=== PATIENT | female | born 1945 | race Two or more races ===

== ENCOUNTER 2024-04-11 18:58 | Emergency (ER) | payer OTHER, MEDICAID ==
[~2024-04-11] VITALS: Ht 170.2 cm; Wt 100.0 kg
[2024-04-11 19:17] VITALS: BP 163/111
[2024-04-11 19:40] VITALS: PULSE 69; RESP 18; O2SAT 95
[2024-04-11] MEDS: LIDOCAINE 1% HCL (LOCAL ANESTH.) INJ 20ML MDV ONE (19:43)
[2024-04-11] MEDS: TETANUS-DIPTH-ACEL PERTUSSIS 0.5ML SYR Tdap IM ONE (21:24)
--- NOTE | 2024-04-11 21:30 | ED.PDOC ---
Chief Complaint: Head Injury Time Seen by MD: 19:14 Reviewed Notes: Nurses Notes, Medications, Allergies Allergies: Coded Allergies: NO KNOWN ALLERGIES (Unverified , 04/11/24) Information Source: Patient Mode of Arrival: EMS Complexity: Intermediate Laceration Length (cm): 2 Past Medical History PAST MEDICAL HISTORY: Denies Surgical History: Denies all surgeries MONITOR AND STORAGE BIN TENDER History: No Pertinent MONITOR AND STORAGE BIN TENDER History Family History Family History: Reviewed,noncontributory to illness Social History Smoker: Non-Smoker Alcohol: Denies ETOH Use Drugs: Denies Drug Use Constitutional: denies: chills, diaphoresis, fatigue, fever, malaise, sweats, weakness, others EENTM: denies: blurred vision, double vision, ear bleeding, ear discharge, ear drainage, ear pain, ear ringing, eye pain, eye redness, hearing loss, mouth pain, mouth swelling, nasal discharge, nose bleeding, nose congestion, nose pain, photophobia, tearing, throat pain, throat swelling, voice changes, others Respiratory: denies: cough, hemoptysis, orthopnea, SOB at rest, shortness of breath, SOB with excertion, stridor, wheezing, others Cardiovascular: denies: chest pain, dizzy spells, diaphoresis, Dyspnea on exertion, edema, irregular heart beat, left arm pain, lightheadedness, palpitations, PND, syncope, others Gastrointestinal: denies: abdomen distended, abdominal pain, blood streaked bowels, constipated, diarrhea, dysphagia, difficulty swallowing, hematemesis, melena, nausea, poor appetite, poor fluid intake, rectal bleeding, rectal pain, vomiting, others Genitourinary: denies: abnormal vagina bleeding, burning, dyspareunia, dysuria, flank pain, frequency, hematuria, incontinence, pain, , vagina discharge, urgency, others Neurological: denies: dizziness, fainting, headache, left sided numbness, left sided weakness, numbness, paresthesia, pre-existing deficit, right sided numbness, right sided weakness, seizure, speech problems, tingling, tremors, weakness, others Musculoskeletal: denies: back pain, gout, joint pain, joint swelling, muscle pain, muscle stiffness, neck pain, others Integumetry: reports: laceration (1 in above right eye); denies: bruises, change in color, change in hair/nails, dryness, lesions, lumps, rash, wounds, others Hematologic/Lymphatic: denies: anemia, blood clots, easy bleeding, easy bruising, swollen glands, others Endocrine: denies: excessive hunger, excessive sweating, excessive thirst, excessive urination, flushing, intolerance to cold, intolerance to heat, unexplained weight gain, unexplained weight loss, others Psychiatric: denies: anxiety, bipolar disorder, depression, hopeless, panic disorder, schizophrenia, sleepless, suicidal, others Physical Exam General Appearance: No Apparent Distress, Normal HEENT: Normal ENT Inspection, Pharynx Normal, TMs Normal Neck: Full Range of Motion, Non-Tender, Normal, Normal Inspection Respiratory: Chest Non-Tender, Lungs Clear, No Accessory Muscle Use, No Respiratory Distress, Normal Breath Sounds Cardiovascular: No Edema, No JVD, No Murmur, No Gallop, Normal Peripheral Pulses, Regular Rate/Rhythm Breast Exam: Deferred Gastrointestinal: No Organomegaly, Non Tender, No Pulsatile Mass, Normal Bowel Sounds, Soft Genitalia: Deferred Pelvic: Deferred Rectal: Deferred Extremities: Normal capillary refill, Normal inspection, Normal range of motion , Non-tender, No pedal edema Musculoskeletal : Apperance: Normal Neurologic: Alert, 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 Was a procedure done?: Yes Sedation Sedation?: No Informed consent obtained: Yes Laceration Repair : Location Above right eyebrow Length 2 cm Anesthetic: Lidocaine, Without epi Laceration Repair Prep: Saline Laceration Repair Wound Comple: epidermis/dermis repair Laceration Repair: Number of sutures (5), Layers Closed, Simple (With absorbable sutures) Informed consent obtained: Yes Risks, benefits, and alternati: Yes Notes Patient tolerated procedure well with minimal blood loss. Differential diagnosis Generic Laceration: Hematoma, Abrasion/Contusion X-Ray, Labs, Meds, VS Vital Signs Date Time Temp Pulse Resp B/P (MAP) Pulse Ox O2 Delivery O2 Flow Rate FiO2 04/11/24 19:40 69 18 95 Room Air 04/11/24 19:17 98.0 89 19 163/111 (128) 98 X-Ray, Labs, Meds, VS Comment See procedure note wound closed with good approximation bleeding stopped. Absorbable sutures no need for removal patient was advised. Advised to follow up with PCP in 2-3 days as necessary. Return to the ER for uncontrolled bleeding signs and symptoms of infection. Patient indicated understanding. Time of 1ST Reevaluation: 21:25 Reevaluation 1ST: Improved Patient Education/Counseling: Diagnosis, Treatment, Prognosis, Need For Follow Up Family Education/Counseling: Diagnosis, Treatment, Prognosis, Need For Follow Up Departure 1 Departure Time of Disposition: 21:25 Impression: Primary Impression: Laceration of forehead without complication Qualified Codes: S01.81XA - Laceration without foreign body of other part of head, initial encounter Disposition: HOME / SELF CARE / HOMELESS Condition: Stable Discharged With: Other (Son) Critical Care Note Critical Care Time?: No Stability Stability form required: BHUPINDER Guan Apr 11, 2024 21:30
== END 2024-04-11 21:47 | disposition home or self-care (01) ==
LOC: EDBD 18:58 → ER 18:58
DX: S01.81XA Laceration without foreign body of other part of head, initial encounter (principal); X58.XXXA Exposure to other specified factors, initial encounter; Y93.89 Activity, other specified; Y92.89 Other specified places as the place of occurrence of the external cause; Y99.8 Other external cause status
CPT/HCPCS: 12011; 90471; 90715; 99283; J2003

== ENCOUNTER 2024-06-05 10:43 | Inpatient (IN) | payer OTHER, MEDICAID ==
[~2024-06-05] VITALS: Ht 172.7 cm; Wt 97.0 kg
[2024-06-05] MEDS: ASPirin 325 MG TAB PO ONE (11:15)
--- NOTE | 2024-06-05 11:32 | ECG ---
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
[2024-06-05 11:47] LABS: Basophils # (auto) 0 10 ^3/uL (0-0.2); Basophils % (auto) 0.5 % (0.0-2.0); Eosinophils # (auto) 0.1 10 ^3/uL (0-0.8); Eosinophils % (auto) 0.9 % (0.0-7.0); Hematocrit 36.2 % (36.0-46.0); Hemoglobin 11.9 g/dL (12.2-16.2); Lymphocytes # (auto) 1.1 10 ^3/uL (0.4-5.4); Lymphocytes % (auto) 18.4 % (10.0-50.0); Mean Corpuscular Hemoglobin 31.8 pg (28.0-32.0); Mean Corpuscular Volume 96.5 fL (80.0-100.0); Monocytes # (auto) 0.3 10 ^3/uL (0-1.3); Monocytes % (auto) 5.7 % (0.0-12.0); Neutrophils # (auto) 4.3 10 ^3/uL (1.6-8.6); Neutrophils % (auto) 74.5 % (37.0-80.0); Nucleated Red Blood Cells % 0.1 %; Platelet Count (auto) 196 10^3/uL (140-450); Red Blood Cells 3.75 10^6/uL (4.0-5.20); Red Cell Distribution Width 16.8 % (11.8-14.3); White Blood Cell 5.8 10^3/uL (4.4-10.8)
--- NOTE | 2024-06-05 11:53 | DVH ---
CHEST RADIOGRAPH Indication: cp Technique: Single frontal view of the chest was obtained COMPARISON: None FINDINGS: Lines and Tubes: None Lungs: Clear Pleura: No effusion. No pneumothorax. Cardiomediastinal contours: Moderate ectasia of the ascending aorta. Mild prominence of the central p ulmonary arteries. Bones: Unremarkable IMPRESSION: 1. Pulmonary infiltrates. Borderline cardiomegaly.
--- NOTE | 2024-06-05 11:56 | ED.PDOC ---
HPI Comments 79 y.o female with PMHx of CHF, CVA and seizures, presents to the ED for a chief complaint of chest pain x 3 months. Patient reports pain presented once a month, described as a pressure but states today it felt tight and presented before 0800 at rest associated with bilateral arm tingling sensation. Patient initially went to urgent care for levetiracetam medication refill, expressed her chest discomfort then and was sent to the ED for further evaluation. Patient does report recent diagnose of bladder infection. Patient denies any SOB, nausea, vomiting, diarrhea, fever, chills. She denies any substance, alcohol or tobacco use. Chief Complaint: Dizziness Time Seen by MD: 10:56 Reviewed Notes: Nurses Notes, Medications, Allergies Allergies: Coded Allergies: NO KNOWN ALLERGIES (Unverified , 04/11/24) Information Source: Patient Mode of Arrival: Ambulatory Severity: Moderate Timing: Months (3) Duration: Since onset Location: Substernal Radiation: Arm (R), Arm (L) Quality: Tightness Onset: At Rest Cardiac Risk Factors: Other PE Risk Factors: None History of: Similar pain in past Modifying Factors: Nothing Associated Signs and Symptoms: None Past Medical History PAST MEDICAL HISTORY: CHF, CVA, Seizures Surgical History: Denies all surgeries CAGE/VAULT SUPERVISOR History: No Pertinent CAGE/VAULT SUPERVISOR History Family History Family History: Reviewed,noncontributory to illness Social History Smoker: Non-Smoker Alcohol: Denies ETOH Use Drugs: Denies Drug Use Lives In: Home Constitutional: denies: chills, diaphoresis, fatigue, fever, malaise, sweats, weakness, others EENTM: denies: blurred vision, double vision, ear bleeding, ear discharge, ear drainage, ear pain, ear ringing, eye pain, eye redness, hearing loss, mouth pain, mouth swelling, nasal discharge, nose bleeding, nose congestion, nose pain, photophobia, tearing, throat pain, throat swelling, voice changes, others Respiratory: denies: cough, hemoptysis, orthopnea, SOB at rest, shortness of breath, SOB with excertion, stridor, wheezing, others Cardiovascular: reports: chest pain; denies: dizzy spells, diaphoresis, Dyspnea on exertion, edema, irregular heart beat, left arm pain, lightheadedness, palpitations, PND, syncope, others Gastrointestinal: denies: abdomen distended, abdominal pain, blood streaked bowels, constipated, diarrhea, dysphagia, difficulty swallowing, hematemesis, melena, nausea, poor appetite, poor fluid intake, rectal bleeding, rectal pain, vomiting, others Genitourinary: denies: abnormal vagina bleeding, burning, dyspareunia, dysuria, flank pain, frequency, hematuria, incontinence, pain, , vagina discharge, urgency, others Neurological: reports: tingling (bilateral arms ); denies: dizziness, fainting, headache, left sided numbness, left sided weakness, numbness, paresthesia, pre- existing deficit, right sided numbness, right sided weakness, seizure, speech problems, tremors, weakness, others Musculoskeletal: denies: back pain, gout, joint pain, joint swelling, muscle pain, muscle stiffness, neck pain, others Integumetry: denies: bruises, change in color, change in hair/nails, dryness, laceration, lesions, lumps, rash, wounds, others Allergic/Immunocompromised: denies: Difficulty Healing, Frequent Infections, Hives, Itching, others Hematologic/Lymphatic: denies: anemia, blood clots, easy bleeding, easy bruising, swollen glands, others Endocrine: denies: excessive hunger, excessive sweating, excessive thirst, excessive urination, flushing, intolerance to cold, intolerance to heat, unexplained weight gain, unexplained weight loss, others Psychiatric: denies: anxiety, bipolar disorder, depression, hopeless, panic disorder, schizophrenia, sleepless, suicidal, others All Other Systems: Reviewed and Negative Physical Exam General Appearance: No Apparent Distress, Normal HEENT: Normal ENT Inspection, Pharynx Normal, TMs Normal Neck: Full Range of Motion, Non-Tender, Normal, Normal Inspection Respiratory: Chest Non-Tender, Lungs Clear, No Accessory Muscle Use, No Respiratory Distress, Normal Breath Sounds Cardiovascular: No Edema, No JVD, No Murmur, No Gallop, Normal Peripheral Pulses, Regular Rate/Rhythm Breast Exam: Deferred Gastrointestinal: No Organomegaly, Non Tender, No Pulsatile Mass, Normal Bowel Sounds, Soft Genitalia: Deferred Pelvic: Deferred Rectal: Deferred Extremities: No calf tenderness, Normal capillary refill, Normal inspection, Normal range of motion, Non-tender, No pedal edema Musculoskeletal : Apperance: Normal Neurologic: 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 Was a procedure done?: No CP Differential Dx Differential Diagnosis: Anxiety / Panic Attack, Heart Failure, Hypoxia, N/A Differential Diagnosis: Angina, Chest Wall Pain, Costochondritis, Esophageal reflux/spasm, Myocardial Infarction, Pericarditis, Pneumonia, Pulmonary Embolus X-Ray, Labs, Meds, VS Vital Signs Date Time Temp Pulse Resp B/P (MAP) Pulse Ox O2 Delivery O2 Flow Rate FiO2 06/05/24 11:57 124 18 98 Room Air* 0 21 06/05/24 11:55 124 18 140/81 (100) 98 06/05/24 11:55 124 18 98 Room Air 06/05/24 11:31 111 06/05/24 11:31 98.1 80 18 145/89 (107) 95 Lab Test 06/05/24 12:49 06/05/24 11:26 06/05/24 11:22 06/05/24 11:07 Range/Units Troponin I High Sensitivity 100 *H 102 *H </=34 ng/L POC Glucose 92 70-106 mg/dl White Blood Count 5.8 4.4-10.8 10^3/uL Red Blood Count 3.75 L 4.0-5.20 10^6/uL Hemoglobin 11.9 L 12.2-16.2 g/dL Hematocrit 36.2 36.0-46.0 % Mean Corpuscular Volume 96.5 80.0-100.0 fL Mean Corpuscular Hemoglobin 31.8 28.0-32.0 pg Mean Corpuscular Hemoglobin Concent 33.0 32.0-36.0 g/dL Red Cell Distribution Width 16.8 H 11.8-14.3 % Platelet Count 196 140-450 10^3/uL Mean Platelet Volume 9.2 6.9-10.8 fL Neutrophils (%) (Auto) 74.5 37.0-80.0 % Lymphocytes (%) (Auto) 18.4 10.0-50.0 % Monocytes (%) (Auto) 5.7 0.0-12.0 % Eosinophils (%) (Auto) 0.9 0.0-7.0 % Basophils (%) (Auto) 0.5 0.0-2.0 % Neutrophils # (Auto) 4.3 1.6-8.6 10 ^3/uL Lymphocytes # (Auto) 1.1 0.4-5.4 10 ^3/uL Monocytes # (Auto) 0.3 0-1.3 10 ^3/uL Eosinophils # (Auto) 0.1 0-0.8 10 ^3/uL Basophils # (Auto) 0 0-0.2 10 ^3/uL Nucleated Red Blood Cells 0.1 % Sodium Level 143 136-145 mmol/L Potassium Level 3.9 3.5-5.1 mmol/L Chloride Level 109 H 98-107 mmol/L Carbon Dioxide Level 24 20-31 mmol/L Anion Gap 10 5-15 Blood Urea Nitrogen 14 9-23 mg/dL Creatinine 0.83 0.550-1.02 mg/dL Glomerular Filtration Rate Calc 73 >90 mL/min BUN/Creatinine Ratio 16.9 10.0-20.0 Serum Glucose 98 74-106 mg/dL Calcium Level 9.5 8.7-10.4 mg/dL Urine Color Yellow Yellow Urine Clarity Turbid H Clear Urine pH 5.5 5.0-9.0 Urine Specific [place] 1.022 1.001-1.035 Urine Protein 1+ H Negative Urine Ketones Negative Negative Urine Blood Trace H Negative /uL Urine Nitrite Negative Negative Urine Bilirubin Negative Negative Urine Urobilinogen Normal Negative mg/dL Urine Leukocyte Esterase 3+ Negative /uL Urine RBC 4 0 - 4 /hpf Urine Microscopic WBC 157 H 0-5 /HPF Urine Squamous Epithelial Cells Few <5 /hpf Urine Bacteria Few H None Seen /hpf Urine Hyaline Casts Few 0 - 2 /lpf Urine Mucus Few None Seen Urine Yeast (Budding) Occasional None Seen /hpf Urine Glucose Normal Normal mg/dL Current Medications Medications (Trade) Dose Ordered Sig/Emerald Route Start Time Stop Time Status Last Admin Aspirin 325 mg ONCE ONCE PO 06/05/24 11:15 06/05/24 11:16 DC 06/05/24 11:[address] [address] Ph: [phone] DIAGNOSTIC IMAGING Diagnostic Imaging Report : [id number] Signed PATIENT: KRISTIE HILLACIADIMA ACCT: [id number] UNIT: [id number] : 1945 LOC: ER ROOM / BED: / AGE / SEX: 79 / F ADM STATUS: REG ER SERVICE ORDERING PHYSICIAN: TRU COKER MD PROCEDURE(s): CXRP - CHEST PORTABLE REASON: cp ORDER NUMBER(s): [id number], ACCESSION NUMBER(s): [id number] CHEST RADIOGRAPH Indication: cp Technique: Single frontal view of the chest was obtained COMPARISON: None FINDINGS: Lines and Tubes: None Lungs: Clear Pleura: No effusion. No pneumothorax. Cardiomediastinal contours: Moderate ectasia of the ascending aorta. Mild prominence of the central pulmonary arteries. Bones: Unremarkable IMPRESSION: 1. Pulmonary infiltrates. Borderline cardiomegaly. ATED BY: MARY CHURCH MD DICTATED DATE/TIME: 06/05/24 115 SIGNED BY: MARY CHURCH MD SIGNED DATE/TIME: 06/05/24 115 CC: Time of 1ST Reevaluation: 11:54 Reevaluation 1ST: Unchanged Time of 2ND Reevaluation: 14:39 Reevaluation 2ND: Unchanged (cardiac rhythm- nsr) Patient Education/Counseling: Diagnosis, Treatment, Prognosis, Need For Follow Up Family Education/Counseling: No Family Present Additional Information I reviewed the following notes from patient's past medical encounters: 04/11/24 for laceration to the forehead The following tests were ordered, and results were reviewed by me: ASA, EKG x3, Troponin x3, BMP, CBC, UA Additional Information was gathered from interviewing the following independent historians: None I reviewed and agreed with the following test results read by other providers: CXR I discussed treatment and results with medical personnel, admitting doctor pt has evidence of chf on the cxr. her troponin is elevated. she has NSTEMI. she also has an UTI, as she reported, which was found in UC. she will be admitted for the NSTEMI Departure 1 Departure Time of Disposition: 14:38 Impression: Primary Impression: NSTEMI (non-ST elevated myocardial infarction) Additional Impressions: UTI (urinary tract infection) Qualified Codes: N30.00 - Acute cystitis without hematuria Acute systolic (congestive) heart failure Disposition: ADMITTED INPATIENT Admit to: [facility] Condition: Serious Critical Care Note Critical Care Time?: Yes (55 min-critical care time only) Critical care comment: Due to concerns for patients condition deteriorating, the care required my hi ghest level of attention and readiness to intervene. I assessed the patient, reviewed the medical records, ordered the appropriate tests and treatments, then reassessed for results and responsiveness. I communicated with medical personnel and consultants and formulated a plan of care. Total critical care time excludes any procedures Stability Stability form required: No Heart Score Heart Score: Heart Score Response (Comments) Value History Highly Suspicious 2 EKG Normal 0 Age >65 2 Risk Factors >3 or Hx ASHD 2 Troponin >3 x's Normal limit 2 Total 8 I personally scribed for [facility]KER MD [facility] on 06/05/24 at 11:56. Electronically submitted by Monica Collier ([email or web address]). I personally scribed for TRU COKER MD ([email or web address]) on 06/05/24 at 12:26. Electronically submitted by Monica Collier ([email or web address]). TRU COKER MD Jun 05, 2024 11:56
[2024-06-05 11:57] VITALS: PULSE 124; RESP 18; O2SAT 98
[2024-06-05 12:06] LABS: Potassium 3.9 mmol/L (3.5-5.1); Sodium 143 mmol/L (136-145)
[2024-06-05 12:07] LABS: Anion Gap 10 (5-15); Calcium 9.5 mg/dL (8.7-10.4); Carbon Dioxide 24 mmol/L (20-31)
[2024-06-05 12:12] LABS: BUN/Creatinine Ratio 16.9 (10.0-20.0); Blood Urea Nitrogen 14 mg/dL (9-23); Glucose 98 mg/dL (74-106)
[2024-06-05 12:17] LABS: Chloride 109 mmol/L (98-107)
[2024-06-05 13:44] LABS: Urine Bacteria FEW /hpf (None Seen); Urine Blood TRACE /uL (Negative); Urine Budding Yeast OCCASIONAL /hpf (None Seen); Urine Clarity Turbid (Clear); Urine Color Yellow (Yellow); Urine Hyaline Cast FEW /lpf (0 - 2); Urine Mucus FEW (None Seen); Urine Protein, UAD 1+ (Negative); Urine Specific Gravity 1.022 (1.001-1.035); Urine Squamous Epithelial Cell FEW /hpf (<5); Urine Urobilinogen Normal (Negative); Urine WBC 157 /HPF (0-5); Urine pH 5.5 (5.0-9.0)
[2024-06-05] MEDS: cefTRIAXone 1GM/50ML D5W 50 ML IV ONE (15:27)
[2024-06-05] MEDS ORDERED: ACETAMINOPHEN 325 MG TAB PO PRN (16:15)
[2024-06-05] MEDS ORDERED: ONDANSETRON HCL 4 MG/2 ML VIAL IV PRN (16:15)
[2024-06-05] MEDS ORDERED: MORPHINE SULFATE INJ 2 MG/ml SYRG IV PRN ×2 (16:15)
[2024-06-05] MEDS ORDERED: NITROGLYCERIN 0.4 MG SL TAB SL PRN (16:15)
[2024-06-05] MEDS ORDERED: HYDROcodone-ACET 5/325MG TAB PO PRN (16:15)
--- NOTE | 2024-06-05 16:23 | DVHHP2 ---
History of Present Illness Reason for Visit: Chest tightness on and off for last two months History of Present Illness 79-year-old female with a known history of congestive heart. , borderline diabet es mellitus, dyslipidemia currently on Entresto presented to the hospital bed chest tightness on and off once a week for last two months. Patient stated chest tightness status for 30-45 minutes and associated with left upper extremity numbness and tingling. Currently she denies any chest pain chest tightness. Denies any known history of cardiac disease but does say that she has some heart failure and was supposed to take Lasix but she has not been taking it. Denied any fever chills or flu-like symptoms. Cardiovascular: CHF, hyperipidemia Past Surgical History: Hysterectomy Family History: None Smoke: No ALCOHOL: none Review of Systems Review of Systems Twelve review of system were negative except mentioned above. 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 Labs/Xrays Labs Test 06/05/24 14:26 06/05/24 11:26 06/05/24 11:22 06/05/24 11:07 Range/Units Troponin I High Sensitivity 98 *H </=34 ng/L POC Glucose 92 70-106 mg/dl White Blood Count 5.8 4.4-10.8 10^3/uL Red Blood Count 3.75 L 4.0-5.20 10^6/uL Hemoglobin 11.9 L 12.2-16.2 g/dL Hematocrit 36.2 36.0-46.0 % Mean Corpuscular Volume 96.5 80.0-100.0 fL Mean Corpuscular Hemoglobin 31.8 28.0-32.0 pg Mean Corpuscular Hemoglobin Concent 33.0 32.0-36.0 g/dL Red Cell Distribution Width 16.8 H 11.8-14.3 % Platelet Count 196 140-450 10^3/uL Mean Platelet Volume 9.2 6.9-10.8 fL Neutrophils (%) (Auto) 74.5 37.0-80.0 % Lymphocytes (%) (Auto) 18.4 10.0-50.0 % Monocytes (%) (Auto) 5.7 0.0-12.0 % Eosinophils (%) (Auto) 0.9 0.0-7.0 % Basophils (%) (Auto) 0.5 0.0-2.0 % Neutrophils # (Auto) 4.3 1.6-8.6 10 ^3/uL Lymphocytes # (Auto) 1.1 0.4-5.4 10 ^3/uL Monocytes # (Auto) 0.3 0-1.3 10 ^3/uL Eosinophils # (Auto) 0.1 0-0.8 10 ^3/uL Basophils # (Auto) 0 0-0.2 10 ^3/uL Nucleated Red Blood Cells 0.1 % Sodium Level 143 136-145 mmol/L Potassium Level 3.9 3.5-5.1 mmol/L Chloride Level 109 H 98-107 mmol/L Carbon Dioxide Level 24 20-31 mmol/L Anion Gap 10 5-15 Blood Urea Nitrogen 14 9-23 mg/dL Creatinine 0.83 0.550-1.02 mg/dL Glomerular Filtration Rate Calc 73 >90 mL/min BUN/Creatinine Ratio 16.9 10.0-20.0 Serum Glucose 98 74-106 mg/dL Calcium Level 9.5 8.7-10.4 mg/dL Urine Color Yellow Yellow Urine Clarity Turbid H Clear Urine pH 5.5 5.0-9.0 Urine Specific [place] 1.022 1.001-1.035 Urine Protein 1+ H Negative Urine Ketones Negative Negative Urine Blood Trace H Negative /uL Urine Nitrite Negative Negative Urine Bilirubin Negative Negative Urine Urobilinogen Normal Negative mg/dL Urine Leukocyte Esterase 3+ Negative /uL Urine RBC 4 0 - 4 /hpf Urine Microscopic WBC 157 H 0-5 /HPF Urine Squamous Epithelial Cells Few <5 /hpf Urine Bacteria Few H None Seen /hpf Urine Hyaline Casts Few 0 - 2 /lpf Urine Mucus Few None Seen Urine Yeast (Budding) Occasional None Seen /hpf Urine Glucose Normal Normal mg/dL Assessment/Plan Assessment/Plan 79-year-old female with a known history of congestive heart failure, dyslipidemia initially presented to the hospital with chest tightness on and off for last two months found to have 1. NSTEMI 2. Congestive heart failure unspecified colonoscopy in exacerbation 3. Dyslipidemia 4. Diabetes mellitus type 2 , borderline 5. UTI 6. Urinary incontinence -admit to telemetry, aspirin statin, therapeutic Lovenox, -risks/benefits/alternatives of therapeutic Lovenox including life-threatening bleeding disability explained to the patient detail who understand verbalized understanding and agreeable to plan -2D echo cardiology consultation. Plan discussed with: Patient My Orders Orders - DEANDRE MOSES MD Procedure Category Date Status Time Admit ADMIT 06/05/24 Transmitted 16:03 Code Status CODE 06/05/24 Transmitted 16:03 2 Gm Sodium Diet DIET 06/05/24 Transmitted Dinner Sodium Chloride 0.9% PHA 06/05/24 Logged 16:15 Hydrocodone-Acet PHA 06/05/24 Logged 5/325mg Tab ([place] 16:15 Ondansetron Hcl PHA 06/05/24 Logged (Zofran) 16:15 Fall Risk Precautions [facility] 06/05/[address] 16:03 Complete Blood Count LAB 06/06/24 Verified 04:00 Comprehensive LAB 06/06/24 Verified Metabolic Panel 04:00 Pt Request For Service PT 06/05/24 Logged 16:03 Echo 2d Mode Cardiac US 06/05/24 Logged DOP 16:03 Condition: Fair [facility] 06/05/24 In Process 16:03 Acetaminophen Tablet PHA 06/05/24 Logged (Tylenol Tablet) 16:15 Morphine Sulfate PHA 06/05/24 Logged Injection 16:15 Nitroglycerin PHA 06/05/24 Logged Sublingual (Ntrostat 16:15 Morphine Sulfate PHA 06/05/24 Logged Injection 16:15 Stat Ekg For Chest LUKASZ 06/05/24 In Process Pain 16:03 Notify Of Changes LUKASZ 06/05/24 In Process From Base 16:03 Field Coil Winder For [facility] 06/05/24 In Process 24 Hours 16:03 Emergency Dysrhythmia [facility] 06/05/24 In Process Protocol 16:03 Rhythm Strips Once LUAKSZ 06/05/24 In Process Every Shift 16:03 Oxygen By Nasal RT 06/05/24 Transmitted Cannula 16:03 * Cardiology Consult CONS 06/05/24 Transmitted 16:03 Aspirin Enteric PHA 06/06/24 Logged Coated Tablet 10:00 Atorvastatin (Lipitor) PHA 06/05/24 Logged 22:00 Enoxaparin Sodium PHA 06/05/24 Logged (Lovenox) 16:15 Urine Bacterial RAJWINDER 06/05/24 Logged Culture 16:11 Ceftriaxone 1gm/50ml PHA 06/05/24 Logged D5w (Rocephin) 16:15 Date of Service: Jun 05, 2024 Billing Provider: DEANDRE MOSES MD Common Visit Codes: NOT BILLABLE DEANDRE MOSES MD Jun 05, 2024 16:23
[2024-06-05] MEDS: ENOXAPARIN SOD 100 MG/1 ML SYRINGE SC SCH (17:30)
[2024-06-05] MEDS: SODIUM CHLORIDE 0.9% 1,000 ML IV SCH (19:25)
[2024-06-05 20:00] VITALS: PULSE 99
[2024-06-05 21:00] VITALS: BP 110/90; PULSE 98; RESP 16; TEMP 98.4; O2SAT 97
[2024-06-05] MEDS: ATORVASTATIN 20 MG TAB PO SCH (21:07)
[2024-06-05] MEDS ORDERED: SACU1TAB PO (21:45)
[2024-06-05] MEDS ORDERED: ATOR-507 PO (21:45)
[2024-06-05] MEDS ORDERED: LEVE500T40 PO (21:47)
[2024-06-05] MEDS ORDERED: ASPI81CH74 PO (21:48)
[2024-06-06] VITALS (8 sets, daily range): BP systolic 114–144; BP diastolic 66–92; PULSE 54–95; RESP 14–19; TEMP 97.4–98.6; O2SAT 16–99
[2024-06-06 07:41] LABS: Basophils # (auto) 0 10 ^3/uL (0-0.2); Basophils % (auto) 0.6 % (0.0-2.0); Eosinophils # (auto) 0.1 10 ^3/uL (0-0.8); Eosinophils % (auto) 2.2 % (0.0-7.0); Hematocrit 31.4 % (36.0-46.0); Hemoglobin 10.6 g/dL (12.2-16.2); Lymphocytes # (auto) 1.5 10 ^3/uL (0.4-5.4); Lymphocytes % (auto) 32.9 % (10.0-50.0); Mean Corpuscular Hgb Conc. 33.6 g/dL (32.0-36.0); Mean Corpuscular Volume 98.2 fL (80.0-100.0); Monocytes # (auto) 0.3 10 ^3/uL (0-1.3); Monocytes % (auto) 7.2 % (0.0-12.0); Neutrophils # (auto) 2.6 10 ^3/uL (1.6-8.6); Neutrophils % (auto) 57.1 % (37.0-80.0); Nucleated Red Blood Cells % 0.3 %; Platelet Count (auto) 161 10^3/uL (140-450); Red Cell Distribution Width 17.1 % (11.8-14.3); White Blood Cell 4.5 10^3/uL (4.4-10.8)
[2024-06-06 08:09] LABS: Alanine Aminotransferase 12 U/L (7-40); Albumin 3.5 g/dL (3.2-4.8); Alkaline Phosphatase 72 U/L (46-116); Anion Gap 9 (5-15); Aspartate Aminotransferase 21 U/L (13-40); BUN/Creatinine Ratio 17.1 (10.0-20.0); Bilirubin, Total 0.4 mg/dL (0.2-1.0); Blood Urea Nitrogen 14 mg/dL (9-23); Calcium 9.2 mg/dL (8.7-10.4); Carbon Dioxide 23 mmol/L (20-31); Glucose 85 mg/dL (74-106); Potassium 3.9 mmol/L (3.5-5.1); Sodium 142 mmol/L (136-145)
[2024-06-06 08:22] LABS: Chloride 110 mmol/L (98-107); Total Protein 5.4 g/dL (5.7-8.2)
[2024-06-06] MEDS: ASPirin-EC 81 mg tab PO SCH (08:29)
[2024-06-06] MEDS: cefTRIAXone 1GM/50ML D5W 50 ML IV SCH (08:30)
[2024-06-06 09:34] LABS: Magnesium 1.6 mg/dL (1.6-2.6)
--- NOTE | 2024-06-06 12:50 | DVHSR ---
APPROVED REPORT EXAM: Two-dimensional and M-mode echocardiogram with Doppler and color Doppler. Blood Pressure: 141/79 mmHg INDICATION NSTEMI RISK FACTORS Height: 68, Weight: 213 DIMENSIONS LVDd5.6 (3.8-5.7cm)LA (2D)4.9 (1.9-4.0cm)Aortic Root4.2 (2.0-3.7cm) LVDs4.3 (2.5-4.0cm)LA (MM) (1.9-4.0cm)Aortic Cusp Exc1.8 (1.5-2.0cm) EF (%) 45.0 (55-70%)Rt. Atrium4.3 (1.9-4.0cm)Asc. Aorta cm IVSd1.2 (0.7-1.1cm)RV (D) (1.8-2.4cm) PWd1.4 (0.7-1.1cm) Mitral Valve MitralMitral Stenosis E wave1.01m/sMV Mean GR.3mmHg A wavem/sMV Peak GR.103mmHg E/A ratio0.02D MVAcm2 Aortic Valve Aortic ValveAortic Stenosis V11.13m/Ananth Mean GR.6mmHg V21.63m/Ananth Peak GR.11mmHg LVOT Diameter2.4 (1.8-2.4cm)Doppler AVA3.13cm2 AI P 1/2 Qxyw347.31ms Pulmonic Valve V20.93m/s Tricuspid Valve TR Velocity2.47m/s [id number] LEFT VENTRICLE The left ventricle is normal size. There is moderate concentric left ventricular hypertrophy. The left ventricle function is moderate to severely reduced, LVEF is 30-35%. Global hypokinesis. RIGHT VENTRICLE The right ventricle is mildly dilated. The right ventricular systolic function is normal. ATRIA The left atrium is moderately dilated. The right atrium is mildly dilated. MITRAL VALVE The mitral valve is grossly normal. Mitral regurgitation is trace to mild. PULMONIC VALVE The pulmonic valve is grossly normal in structure and function. There is trace to mild pulmonic valvular regurgitation. TRICUSPID VALVE The tricuspid valve is grossly normal. There is mild tricuspid regurgitation. AORTIC VALVE The aortic valve is trileaflet. There is mild aortic regurgitation. GREAT VESSELS There is mild to moderate aortic root dilatation. PERICARDIAL EFFUSION No significant pericardial effusion. Conclusion The left ventricle is normal size. There is moderate concentric left ventricular hypertrophy. The lef t ventricle function is moderate to severely reduced, LVEF is 30-35%. Global hypokinesis. The right ventricle is mildly dilated. The right ventricular systolic function is normal. The left atrium is moderately dilated. The right atrium is mildly dilated. No significant valvular disease. There is mild to moderate aortic root dilatation. No significant pericardial effusion.
--- NOTE | 2024-06-06 16:03 | DVHPN2 ---
Subjective Overnight events noted. Patient denies any chest tightness today. 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 Medications Current Medications Medications Dose Ordered Sig/Emerald Route Start Time Stop Time Status Last Admin Dose Admin Sodium Chloride 1,000 ml @ 60 mls/hr [id number] IV 06/05/24 16:15 Acetaminophen/ Hydrocodone Bitart 1 tab Q4HP PRN PO 06/05/24 16:15 Ondansetron HCl 4 mg Q4HP PRN IV 06/05/24 16:15 Acetaminophen 650 mg Q6HP PRN PO 06/05/24 16:15 Morphine Sulfate 2 mg Q4HPRN PRN IV 06/05/24 16:15 Nitroglycerin 0.4 mg Q5MINP PRN SL 06/05/24 16:15 Morphine Sulfate 2 mg Q30M PRN IV 06/05/24 16:15 Aspirin 81 mg DAILY PO 06/06/24 10:00 06/06/24 08:29 81 MG Atorvastatin Calcium 40 mg HS PO 06/05/24 22:00 06/05/24 21:07 40 MG Enoxaparin Sodium 100 mg Q12HR SC 06/05/24 16:15 06/06/24 08:30 100 MG Ceftriaxone Sodium 50 ml @ 100 mls/hr DAILY@09 IV 06/06/24 09:00 06/06/24 08:30 100 MLS/HR Laboratory Results Laboratory Tests 06/06/24 07:13 Chemistry Test 06/06/24 07:13 Albumin 3.5 g/dL (3.2-4.8) Calcium Level 9.2 mg/dL (8.7-10.4) Magnesium Level 1.6 mg/dL (1.6-2.6) Total Protein 5.4 g/dL (5.7-8.2) L Lipid panel Test 06/06/24 07:13 Cholesterol Level 132 mg/dL (< 200) HDL Cholesterol 55 mg/dL (40-59) Triglycerides Level 47 mg/dL (< 150) LFT Test 06/06/24 07:13 Alanine Aminotransferase (ALT) 12 U/L (7-40) Alkaline Phosphatase 72 U/L (46-116) Aspartate Amino Transferase (AST) 21 U/L (13-40) Total Bilirubin 0.4 mg/dL (0.2-1.0) HgA1c, TSH Test 06/06/24 07:13 Hemoglobin A1c 5.6 % A1C (<5.7) Thyroid Stimulating Hormone (TSH) 1.82 uIU/mL (0.55-4.78) Urinalysis Test 06/05/24 11:07 Urine Color Yellow (Yellow) Urine Clarity Turbid (Clear) H Urine pH 5.5 (5.0-9.0) Urine Specific [place] 1.022 (1.001-1.035) Urine Protein 1+ (Negative) H Urine Ketones Negative (Negative) Urine Blood Trace /uL (Negative) H Urine Nitrite Negative (Negative) Urine Bilirubin Negative (Negative) Urine Urobilinogen Normal mg/dL (Negative) Urine Leukocyte Esterase 3+ /uL (Negative) Urine RBC 4 /hpf (0 - 4) Urine Microscopic WBC 157 /HPF (0-5) H Urine Squamous Epithelial Cells Few /hpf (<5) Urine Bacteria Few /hpf (None Seen) H Urine Hyaline Casts Few /lpf (0 - 2) Urine Mucus Few (None Seen) Urine Yeast (Budding) Occasional /hpf (None Urine Glucose Normal mg/dL (Normal) Microbiology Microbiology Date/Time Source Procedure Growth Status 06/05/24 11:07 Urine - Midstream Clean Catch Urine Culture - Preliminary Resulted Assessment/Plan Assessment/Plan 79-year-old female with a known history of congestive heart failure, dyslipidemia initially presented to the hospital with chest tightness on and off for last two months found to have 1. NSTEMI 2. Congestive heart failure unspecified colonoscopy in exacerbation 3. Dyslipidemia 4. Diabetes mellitus type 2 , borderline 5. UTI 6. Urinary incontinence -, aspirin statin, therapeutic Lovenox, -risks/benefits/alternatives of therapeutic Lovenox including life-threatening bleeding disability explained to the patient detail who understand verbalized understanding and agreeable to plan -2D echo cardiology consultation. Plan discussed with: Patient My Orders Orders - DEANDRE MOSES MD Procedure Category Date Status Time Admit ADMIT 06/05/24 Transmitted 16:03 Code Status CODE 06/05/24 Transmitted 16:03 2 Gm Sodium Diet DIET 06/05/24 Transmitted Dinner Sodium Chloride 0.9% PHA 06/05/24 In Process 16:15 Hydrocodone-Acet PHA 06/05/24 In Process 5/325mg Tab ([place] 16:15 Ondansetron Hcl PHA 06/05/24 In Process (Zofran) 16:15 Pt Request For Service PT 06/05/24 Logged 16:03 Condition: Fair LUKASZ 06/05/24 In Process 16:03 Acetaminophen Tablet PHA 06/05/24 In Process (Tylenol Tablet) 16:15 Morphine Sulfate PHA 06/05/24 In Process Injection 16:15 Nitroglycerin PHA 06/05/24 In Process Sublingual (Ntrostat 16:15 Morphine Sulfate PHA 06/05/24 In Process Injection 16:15 Stat Ekg For Chest LUKASZ 06/05/24 In Process Pain 16:03 Notify Md Of Changes LUKASZ 06/05/24 In Process From Base 16:03 Clay Roaster For LUKASZ 06/05/24 In Process 24 Hours 16:03 Emergency Dysrhythmia LUKASZ 06/05/24 In Process Protocol 16:03 Rhythm Strips Once LUKASZ 06/05/24 In Process Every Shift 16:03 Oxygen By Nasal RT 06/05/24 Transmitted Cannula 16:03 * Cardiology Consult CONS 06/05/24 Transmitted 16:03 Aspirin Enteric PHA 06/06/24 In Process Coated Tablet 10:00 Atorvastatin (Lipitor) PHA 06/05/24 In Process 22:00 Enoxaparin Sodium PHA 06/05/24 In Process (Lovenox) 16:15 Urine Bacterial RAJWINDER 06/05/24 In Process Culture 16:11 Ceftriaxone 1gm/50ml PHA 06/06/24 In Process D5w (Rocephin) 09:00 * Wound Consult CONS 06/05/24 Transmitted Hepatitis B Surface LAB 06/05/24 In Process Antibody 22:07 Hepatitis C Antibody LAB 06/05/24 In Process 22:07 Echo 2d Mode Cardiac US 06/06/24 Resulted DOP 16:03 Date of Service: Jun 06, 2024 Billing Provider: DEANDRE MOSES MD Common Visit Codes: NOT BILLABLE DEANDRE MOSES MD Jun 06, 2024 16:03
--- NOTE | 2024-06-06 16:06 | DVHINCON2 ---
Date Seen: Jun 06, 2024 Referring Physician MD Sylvain Reason for Consultation NSTEMI History of Present Illness This is a 79-year-old female patient who presents to the emergency room with chief complaint of chest pain for the last three months. She describes the pain as unprovoked, intermittent, tight in nature, substernal and nonradiating. Associated symptoms include tingling in bilateral arms and dizziness. The patient reports she recently ran out of her medications and went to urgent care for a refill. Urgent care instructed her to come to the emergency room after she mentioned chest pain. She decided to come to the emergency room for further evaluation. Cardiology has now been consulted for NSTEMI. Initial twelve lead electrocardiogram reveals normal sinus rhythm with right bundle branch block. Initial troponin level of 102ng/L with flat trend thereafter. Significant past medical history includes congestive heart failure, hyperlipidemia, CVA, and brain tumor. The patient reports that she has not had any kind treatment for her brain tumor. She reports that she was started on Keppra because of the tumor, but denies any other intervention. The patient denies following up with a food safety officer in the outpatient setting. She denies a previous ischemic workup. Past Medical History Past medical history reviewed. No other significant than mentioned above. Past Surgical History Denies Family History: FH: CHF (congestive heart failure) G8 MOTHER FH: aneurysm G8 FATHER Family History Family history reviewed. Social History Denies the use of tobacco, alcohol or illicit drugs. Allergies: Coded Allergies: NO KNOWN ALLERGIES (Unverified , 04/11/24) Home Meds Reported Medications Aspirin (Aspirin 81 Low Dose) 81 Mg Chw, 81 MG PO DAILY, TAB.CHEW 06/05/24 Levetiracetam (Keppra) 500 Mg Tab, 1 TAB PO BID, #180 TAB 3 Refills 06/05/24 Sacubitril-Valsartan (Entresto 24-26 mg) 1 Tab Tab, 1 TAB PO BID, TAB 06/05/24 Atorvastatin Calcium (Lipitor) 40 Mg Tab, 1 TAB PO QPM, #90 TAB 1 Refill 06/05/24 Home Meds Home medications reviewed. Current Medications Current Medications Medications (Trade) Dose Ordered Sig/Emerald Route PRN Reason Start Time Stop Time Status Last Admin Sodium Chloride 1,000 ml @ 60 mls/hr [id number] IV 06/05/24 16:15 Acetaminophen/ Hydrocodone Bitart ([place]ates 5/325MG Tab) 1 tab Q4HP PRN PO MODERATE PAIN (4-6 PAIN SCALE) 06/05/24 16:15 Ondansetron HCl (Zofran) 4 mg Q4HP PRN IV NAUSEA / VOMITING 06/05/24 16:15 Acetaminophen (Tylenol Tablet) 650 mg Q6HP PRN PO PAIN SCALE 1-3 OR TEMP>100.4 06/05/24 16:15 Morphine Sulfate 2 mg Q4HPRN PRN IV SEVERE PAIN (7-10 PAIN SCALE) 06/05/24 16:15 Nitroglycerin (Ntrostat Sublingual) 0.4 mg Q5MINP PRN SL FOR CHEST PAIN 06/05/24 16:15 Morphine Sulfate 2 mg Q30M PRN IV FOR CHEST PAIN 06/05/24 16:15 Aspirin (Ecotrin Enteric Coated Tablet) 81 mg DAILY PO 06/06/24 10:00 06/06/24 08:29 Atorvastatin Calcium (Lipitor) 40 mg HS PO 06/05/24 22:00 06/05/24 21:07 Enoxaparin Sodium (Lovenox) 100 mg Q12HR SC 06/05/24 16:15 06/06/24 08:30 Ceftriaxone Sodium 50 ml @ 100 mls/hr DAILY@09 IV 06/06/24 09:00 06/06/24 08:30 Review of Systems Constitutional: No symptom reported Ears, Nose, & Throat: No symptom reported Eyes: No symptom reported Neurological: No symptoms reported Pulmonary/Respiratory: No symptoms reported Cardiovascular: Chest pain Gastrointestinal: No symptom reported Genitourinary: No symptom reported Musculoskeletal: No symptom reported Skin: No symptom reported Psychiatric: No symptom reported Endocrine: No symptom reported Hematologic/Lymphatic: No symptom reported Vital Signs Vital Signs Date Time Temp Pulse Resp B/P (MAP) Pulse Ox O2 Delivery O2 Flow Rate FiO2 06/06/24 13:00 97.4 87 18 114/71 (85) 98 97.4 06/06/24 08:00 Room Air* 0 21 Physical Exam General Appearance: Cooperative. Well-developed. Well-nourished. No acute distress. Pulmonary/Respiratory: Clear, bilateral breaths sounds. Cardiovascular/Chest: Regular rate and rhythm. Peripheral Pulses: 2+ Radial (R). 2+ Radial (L). 2+ Pedal (R). 2+ Pedal (L) Abdominal Exam: Normal bowel sounds. Ankle Exam: Negative ankle edema Lower extremities: Negative lower extremity edema Neuro/Mental Status: A/OX4, coherent. Thoughts/Psych: Normal thought pattern. Appropriate mood and affect. Good judgment and insight. Appearance: No acute distress. Skin Exam: Normal inspection. Normal color. Warm and dry. Labs/Diagnostic Data Labs Test 06/06/24 07:13 06/05/24 14:26 06/05/24 11:26 06/05/24 11:22 Range/Units White Blood Count 4.5 4.4-10.8 10^3/uL Red Blood Count 3.20 L 4.0-5.20 10^6/uL Hemoglobin 10.6 L 12.2-16.2 g/dL Hematocrit 31.4 #L 36.0-46.0 % Mean Corpuscular Volume 98.2 80.0-100.0 fL Mean Corpuscular Hemoglobin 33.0 H 28.0-32.0 pg Mean Corpuscular Hemoglobin Concent 33.6 32.0-36.0 g/dL Red Cell Distribution Width 17.1 H 11.8-14.3 % Platelet Count 161 140-450 10^3/uL Mean Platelet Volume 9.4 6.9-10.8 fL Neutrophils (%) (Auto) 57.1 37.0-80.0 % Lymphocytes (%) (Auto) 32.9 10.0-50.0 % Monocytes (%) (Auto) 7.2 0.0-12.0 % Eosinophils (%) (Auto) 2.2 0.0-7.0 % Basophils (%) (Auto) 0.6 0.0-2.0 % Neutrophils # (Auto) 2.6 1.6-8.6 10 ^3/uL Lymphocytes # (Auto) 1.5 0.4-5.4 10 ^3/uL Monocytes # (Auto) 0.3 0-1.3 10 ^3/uL Eosinophils # (Auto) 0.1 0-0.8 10 ^3/uL Basophils # (Auto) 0 0-0.2 10 ^3/uL Nucleated Red Blood Cells 0.3 % Sodium Level 142 136-145 mmol/L Potassium Level 3.9 3.5-5.1 mmol/L Chloride Level 110 H 98-107 mmol/L Carbon Dioxide Level 23 20-31 mmol/L Anion Gap 9 5-15 Blood Urea Nitrogen 14 9-23 mg/dL Creatinine 0.82 0.550-1.02 mg/dL Glomerular Filtration Rate Calc 74 >90 mL/min BUN/Creatinine Ratio 17.1 10.0-20.0 Serum Glucose 85 74-106 mg/dL Hemoglobin A1c 5.6 <5.7 % A1C Calcium Level 9.2 8.7-10.4 mg/dL Magnesium Level 1.6 1.6-2.6 mg/dL Total Bilirubin 0.4 0.2-1.0 mg/dL Aspartate Amino Transferase (AST) 21 13-40 U/L Alanine Aminotransferase (ALT) 12 7-40 U/L Alkaline Phosphatase 72 46-116 U/L Total Protein 5.4 L 5.7-8.2 g/dL Albumin 3.5 3.2-4.8 g/dL Triglycerides Level 47 < 150 mg/dL Cholesterol Level 132 < 200 mg/dL LDL Cholesterol 65 < 100 mg/dL HDL Cholesterol 55 40-59 mg/dL Thyroid Stimulating Hormone (TSH) 1.82 0.55-4.78 uIU/mL Troponin I High Sensitivity 98 *H </=34 ng/L POC Glucose 92 70-106 mg/dl Test 06/05/24 11:07 Range/Units Urine Color Yellow Yellow Urine Clarity Turbid H Clear Urine pH 5.5 5.0-9.0 Urine Specific [place] 1.022 1.001-1.035 Urine Protein 1+ H Negative Urine Ketones Negative Negative Urine Blood Trace H Negative /uL Urine Nitrite Negative Negative Urine Bilirubin Negative Negative Urine Urobilinogen Normal Negative mg/dL Urine Leukocyte Esterase 3+ Negative /uL Urine RBC 4 0 - 4 /hpf Urine Microscopic WBC 157 H 0-5 /HPF Urine Squamous Epithelial Cells Few <5 /hpf Urine Bacteria Few H None Seen /hpf Urine Hyaline Casts Few 0 - 2 /lpf Urine Mucus Few None Seen Urine Yeast (Budding) Occasional None Seen /hpf Urine Glucose Normal Normal mg/dL Microbiology Date/Time Source Procedure Growth Status 06/05/24 11:07 Urine - Midstream Clean Catch Urine Culture - Preliminary Resulted Assessment NSTEMI, rule out type 1 Acute on chronic HFrEF, NYHA class III Hyperlipidemia Urinary tract infection CVA Brain tumor Obesity Plan/Recommendation We will continue with the following plan/recommendations (Dr. Ortiz): * Transthoracic echocardiogram reveals EF 30-35% * Initiate guideline directed medical therapy for CHF as tolerated * Avoid SGLT2i given urinary tract infection * Strict intake and output, daily weights, maintain fluid restriction * Chest pain protocol * HEART score: 6 points (moderate) * KATHIA score: 4 points * Single antiplatelet therapy and lipid-lowering agent * Cardiac surveillance * Antibiotics per primary care team Patient seen and examined at bedside with . Given the patient's clinical presentation, reduced ejection fraction and positive troponin level, we will recommend for the patient to undergo a coronary angiogram with left heart catheterization. We will discuss and offer this patient a coronary angiogram. In the meantime, continue with medical management. Thank you for allowing us to care for this patient. Please call with any questions or concerns. Critical care time spent: 42 minutes This medical document was created using an electronic medical record system with voice recognition software and computerized dictation system. Although this document has been carefully reviewed, there might still be some phonetic and typographical errors. Occasional wrong-word or ``sound-alike substitutions may have occurred due to the inherent limitations of voice recognition software. These areas are purely typographical due to imperfections of the software programs and do not reflect any compromise in the patient's medical care. Please read the chart carefully and recognize, using context, where these substitutions have occurred. Plan discussed with: Patient NYHA Physical activity limitations: Class3(Marked) ordinary (activity causes symtoms) Date of Service: Jun 06, 2024 Billing Provider: LUCI HUSAIN Cardiology Common Codes: 43355-YQLQFCM INP/OBS CARE (High) Cardiology Consultation Codes: [id number] CONSULT <45MIN LUCI HUSAIN Jun 06, 2024 16:06
[2024-06-06] MEDS: SACUBITRIL-VALSARTAN 24mg/26mg TAB PO SCH (21:29)
[2024-06-07] VITALS (11 sets, daily range): BP systolic 118–142; BP diastolic 70–84; PULSE 63–84; RESP 11–20; TEMP 97.6–98.3; O2SAT 92–96
[2024-06-07 08:12] LABS: Basophils # (auto) 0 10 ^3/uL (0-0.2); Basophils % (auto) 0.6 % (0.0-2.0); Eosinophils # (auto) 0.1 10 ^3/uL (0-0.8); Eosinophils % (auto) 1.8 % (0.0-7.0); Lymphocytes # (auto) 1.3 10 ^3/uL (0.4-5.4); Lymphocytes % (auto) 29.8 % (10.0-50.0); Mean Corpuscular Hemoglobin 32.3 pg (28.0-32.0); Mean Corpuscular Hgb Conc. 33.4 g/dL (32.0-36.0); Mean Corpuscular Volume 96.8 fL (80.0-100.0); Monocytes # (auto) 0.3 10 ^3/uL (0-1.3); Monocytes % (auto) 7.4 % (0.0-12.0); Neutrophils # (auto) 2.7 10 ^3/uL (1.6-8.6); Neutrophils % (auto) 60.4 % (37.0-80.0); Platelet Count (auto) 158 10^3/uL (140-450); Red Cell Distribution Width 16.9 % (11.8-14.3); White Blood Cell 4.5 10^3/uL (4.4-10.8)
[2024-06-07] MEDS: MAGNESIUM SULFATE 1GM/100ML 100 ML IV ONE (08:22)
[2024-06-07 08:23] LABS: Calcium 8.9 mg/dL (8.7-10.4); Sodium 144 mmol/L (136-145)
[2024-06-07 08:24] LABS: Anion Gap 7 (5-15); Carbon Dioxide 25 mmol/L (20-31)
[2024-06-07 08:27] LABS: INR 1.12 (0.9-1.15); Partial Thromboplastin Time 34.2 SEC (24.5-34.5); Prothrombin Time 11.7 sec (9.3-11.8)
[2024-06-07 08:29] LABS: BUN/Creatinine Ratio 18.8 (10.0-20.0); Blood Urea Nitrogen 15 mg/dL (9-23); Glucose 82 mg/dL (74-106)
[2024-06-07 08:33] LABS: Chloride 112 mmol/L (98-107)
--- NOTE | 2024-06-07 09:40 | DVHPN2 ---
Consult Progress Note Date Seen: Jun 07, 2024 Subjective Review of Systems: CVS:Normal, RESPIRATORY:Normal, NEURO:Normal Objective vital signs Vital Sign Date Time Temp Pulse Resp B/P (MAP) Pulse Ox O2 Delivery O2 Flow Rate FiO2 06/07/24 05:00 98.0 77 20 118/70 (86) 96 98.0 06/06/24 20:00 Room Air* 0 21 Total Intake and Output 06/06/24 06/06/24 06/07/24 14:59 22:59 06:59 Intake Total 50 ml 420 ml 250 ml Balance 50 ml 420 ml 250 ml medications Current Medications Medications Dose Ordered Sig/Emerald Route Start Time Stop Time Status Last Admin Dose Admin Sodium Chloride 1,000 ml @ 60 mls/hr [id number] IV 06/05/24 16:15 06/06/24 23:48 60 MLS/HR Acetaminophen/ Hydrocodone Bitart 1 tab Q4HP PRN PO 06/05/24 16:15 Ondansetron HCl 4 mg Q4HP PRN IV 06/05/24 16:15 Acetaminophen 650 mg Q6HP PRN PO 06/05/24 16:15 Morphine Sulfate 2 mg Q4HPRN PRN IV 06/05/24 16:15 Nitroglycerin 0.4 mg Q5MINP PRN SL 06/05/24 16:15 Morphine Sulfate 2 mg Q30M PRN IV 06/05/24 16:15 Aspirin 81 mg DAILY PO 06/06/24 10:00 06/06/24 08:29 81 MG Atorvastatin Calcium 40 mg HS PO 06/05/24 22:00 06/06/24 21:28 40 MG Ceftriaxone Sodium 50 ml @ 100 mls/hr DAILY@09 IV 06/06/24 09:00 06/06/24 08:30 100 MLS/HR Sacubitril/ Valsartan 1 tab BID PO 06/06/24 22:00 06/06/24 21:29 1 TAB Metoprolol Succinate 25 mg DAILY PO 06/07/24 10:00 Spironolactone 25 mg DAILY PO 06/07/24 10:00 Examination: LUNGS:Normal, CVS:Normal, NEURO:Normal laboratory and microbiology Laboratory Tests 06/07/24 07:06 Test 06/07/24 07:06 Range/Units Serum Glucose 82 74-106 mg/dL Problem List/Assessment/Plan Problem List/Assessment/Plan NSTEMI, ?type 1, rule out coronary artery disease Acute on chronic HFrEF, NYHA class III Hyperlipidemia Urinary tract infection CVA Brain tumor Obesity Plan/Recommendation (Dr. Barron) * Transthoracic echocardiogram reveals EF 30-35% * Continue guideline directed medical therapy for CHF as tolerated * Avoid SGLT2i given urinary tract infection * Strict intake and output, daily weights, maintain fluid restriction * Chest pain protocol * HEART score: 6 points (moderate) * KATHIA score: 4 points * Single-antiplatelet therapy and lipid-lowering agent Given the patient's clinical presentation, reduced ejection fraction and positive troponin level, she is scheduled for a coronary angiogram with left heart catheterization on 06/07/2024. All risks and benefits were discussed in detail with all questions answered. Communicated with son Jovany Castaneda over the phone per patient's request who agrees with POC. Thank you for allowing us to care for this patient. Please call with any questions or concerns. Critical care time spent: 42 minutes This medical document was created using an electronic medical record system with voice recognition software and computerized dictation system. Although this document has been carefully reviewed, there might still be some phonetic and typographical errors. Occasional wrong-word or ``sound-alike substitutions may have occurred due to the inherent limitations of voice recognition software. These areas are purely typographical due to imperfections of the software programs and do not reflect any compromise in the patient's medical care. Please read the chart carefully and recognize, using context, where these substitutions have occurred. Plan discussed with: Patient, Other Date of Service: Jun 07, 2024 Billing Provider: PHU BARRON Sr., MD Cardiology Common Codes: [id number] [facility] Jun 07, 2024 09:40
[2024-06-07] MEDS: SPIRONOLACTONE 25 MG TAB PO SCH (09:43)
[2024-06-07] MEDS: METOPROLOL SUCCINATE XL 50 MG TAB PO SCH (09:43)
[2024-06-07 10:26] LABS: Hepatitis B Surface Antibody Negative (Negative); Hepatitis C Antibody Negative (Negative)
--- NOTE | 2024-06-07 11:27 | ECG ---
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
[2024-06-07] MEDS: IODIXANOL 320MG/ML 100ML BTL IV ONE (12:16)
[2024-06-07] MEDS: VERAPAMIL 2.5MG/ML INJ 2ML VIAL IV ONE (12:48)
[2024-06-07] MEDS: MIDAZOLAM HCL 2MG/2ML 2ml VIAL (1mg/ml) ONE (12:48)
[2024-06-07] MEDS: ANGIOMAX 250 MG VIAL IV ONE (12:48)
[2024-06-07] MEDS: fentaNYL CITRATE 100 MCG/2 ML VL ONE (12:48)
[2024-06-07] MEDS: HEPARIN SODIUM (PORCINE) 5000 UNITS/ML 1ML VIAL ONE (12:48)
[2024-06-07] MEDS: SODIUM CHL 0.9% 0 ML ONE (12:49)
[2024-06-07] MEDS: LIDOCAINE 2%HCL (LOCAL ANESTH.) INJ 20ML MDV ONE (12:49)
--- NOTE | 2024-06-07 13:25 | DVHOP2 ---
Operative Report Operative Report CARDIAC FRAME NAILER PROCEDURE REPORT [place], [place] Date of Service: 06/07/24 Gluing Machine Operator: Darline Reid MD PROCEDURES PERFORMED: Coronary angiogram, left heart catheterization, conscious sedation administration and supervision, less than 15 minutes sedatio n15-30 mins ; fluoroscopy use and interpretation. PREOPERATIVE DIAGNOSES: nstemi POSTOP DIAGNOSIS: nstemi DESCRIPTION OF PROCEDURE: The patient or appropriate family signed informed consent understanding the risks, benefits and alternatives of the procedure, they wished to proceed. The patient was brought to the cardiac worm farm laborer in n.p.o. state. The patient was prepped in a sterile fashion. Sedation was used per cardiac cath protocol. I administered 2 mL of 2% lidocaine to the right wrist. With an antegrade front wall puncture. I cannulated the right radial artery and placed a 6-[place]amese [place] slender. Next, an intra-arterial spasmolytic was administered. Next, a - 5 [place]e [place] catheter and were used for coronary angiogram and LVEDP measurement and pressure pullback. At the completion of procedure, all guides and wires were removed, and there were no immediate complications. 4000 U of IV heparin given. FINDINGS: RCA: very large ectatic dominant vessel off the right sinus of Valsalva, there is no severe flow limiting stenosis. LEFT MAIN: very large size left main, it trifurcates into LAD and circumflex. and RAMUS RAMUS: no severe stenosis CIRCUMFLEX: Moderate caliber vessel coming off the left main with no flow limiting stenosis. early take off OM1 that is patent. LAD: LAD is a moderate caliber vessel coming of the left main. ostial LAD hasa 50% stenosis .very tortuous vessel. distal LAD has a intramyocardial bridge noted LVEDP of 3 mmhg CONCLUSIONS: 1. moderate CAD PLAN: Aggressive risk factor modification and medical management for the patient. CHF treatment for low EF DARLINE REID MD Jun 07, 2024 13:25
[2024-06-07] MEDS ORDERED: SPIR25TA PO (15:38)
[2024-06-07] MEDS ORDERED: METO-6 PO (15:38)
[2024-06-07] MEDS ORDERED: CEFD300C2 PO (15:40)
[2024-06-07] MEDS: PNEUMOCOCCAL VACC POLYS 25 MCG/0.5 ML VIAL IM ONE (18:00)
== END 2024-06-07 18:35 | disposition home or self-care (01) | DRG 280 ==
LOC: ER 10:43 → TELE 16:03 → TELE-WESTW 18:31
PROVIDERS: ADMIT Internal Medicine; ATTEND Internal Medicine
PROC: B2111ZZ Fluoroscopy of Multiple Coronary Arteries using Low Osmolar Contrast (ICD-10-PCS; principal; 2024-06-07)
PROC: 4A023N7 Measurement of Cardiac Sampling and Pressure, Left Heart, Percutaneous Approach (ICD-10-PCS; 2024-06-07)
DX: I21.4 Non-ST elevation (NSTEMI) myocardial infarction (principal); I50.23 Acute on chronic systolic (congestive) heart failure; N39.0 Urinary tract infection, site not specified; I25.10 Atherosclerotic heart disease of native coronary artery without angina pectoris; I11.0 Hypertensive heart disease with heart failure; D49.6 Neoplasm of unspecified behavior of brain; E66.9 Obesity, unspecified; E11.9 Type 2 diabetes mellitus without complications; E78.5 Hyperlipidemia, unspecified; I45.10 Unspecified right bundle-branch block; Z82.49 Family history of ischemic heart disease and other diseases of the circulatory system; Z86.73 Personal history of transient ischemic attack (TIA), and cerebral infarction without residual deficits; Z90.710 Acquired absence of both cervix and uterus; Z68.32 Body mass index [BMI] 32.0-32.9, adult; Z79.82 Long term (current) use of aspirin; Z79.899 Other long term (current) drug therapy
CPT/HCPCS: 36415; 71045; 80048; 80053; 80061; 81001; 82962; 83036; 83735; 84443; 84484; 85025; 85610; 85730; 86706; 86803; 86850; 86900; 86901; 87086; 87088; 87186; 93005; 93306; 93458; 97110; 97116; 97163; 97530; 99152; 99291; G0378; J2250; Q9967